=== PATIENT | male | born 1985 | race American Indian/Alaskan Native ===

== ENCOUNTER 2019-06-07 21:56 | Emergency (ER) | payer OTHER ==
[2019-06-08] MEDS ORDERED: ONDANSETRON 4 MG ODT TAB PO ONE (04:25)
[2019-06-08] MEDS ORDERED: IBUPROFEN 600 MG TAB PO ONE (04:25)
[2019-06-08] MEDS ORDERED: HYDROcodone/ACETAMINOPHEN 7.5-325MG TAB PO ONE (04:25)
[2019-06-08] MEDS ORDERED: CYCLOBENZAPRINE 10 MG TAB PO ONE (05:21)
[2019-06-08] MEDS ORDERED: CYCLOBENZAPRINE 10 MG TAB ONE (05:22)
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
--- NOTE | 2019-06-08 06:42 | XRay Report ---
CHEST 1 VIEW INDICATION / CLINICAL INFORMATION: Pain. COMPARISON: None available. FINDINGS: SUPPORT DEVICES: None. HEART / MEDIASTINUM: No significant abnormality. LUNGS / PLEURA: No significant pulmonary or pleural abnormality. No pneumothorax. ADDITIONAL FINDINGS: No significant additional findings. IMPRESSION: 1. No significant change Signer Name: Maulik Rooney MD Signed: 06/08/2019 6:37 AM Workstation Name: [id number]
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
[2019-06-08 07:22] VITALS: BP 137/82
== END 2019-06-08 07:11 | disposition home or self-care (01) ==
LOC: ED 21:56
DX: S43.492A Other sprain of left shoulder joint, initial encounter (principal); M62.838 Other muscle spasm; M62.830 Muscle spasm of back; M54.2 Cervicalgia; M54.5 Low back pain; R07.89 Other chest pain; Z79.899 Other long term (current) drug therapy; V89.2XXA Person injured in unspecified motor-vehicle accident, traffic, initial encounter; Y93.89 Activity, other specified; Y92.488 Other paved roadways as the place of occurrence of the external cause; Y99.8 Other external cause status
CPT/HCPCS: 71045; 71046; 72040; 72100; 99283; Q0162